=== PATIENT | male | born 1955 | race Caucasian/White ===

== ENCOUNTER 2018-01-28 11:22 | Observation (INO) ==
[2018-01-28] MEDS ORDERED: GI Cocktail 40 ML EACH PO ONE (11:32)
[2018-01-28] MEDS ORDERED: Aspirin 81 MG TAB.CHEW PO ONE (11:32)
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
[2018-01-28 12:21] LABS: Basophils % 0.2 %; Eosinophils # 0.1 K/mcL (0.0-0.6); Eosinophils % 2.1 %; Hematocrit 39.7 % (37.5-50.1); Hemoglobin 12.8 g/dL (12.9-16.9); Immature Granulocytes % 0.9 % (0-4); Lymphocytes # 0.6 K/mcL (0.6-4.6); Mean Corpuscular HGB Conc 32.2 g/dL (31.6-35.5); Mean Corpuscular Hemoglobin 26.1 pg (28.0-33.3); Mean Platelet Volume 10.1 fL (9.4-12.4); Monocytes # 0.3 K/mcL (0.0-1.3); Monocytes % 5.9 %; Neutrophils # 3.4 K/mcL (1.6-8.9); Platelet Count 123 K/mcL (140-400); Red Cell Distribution Width 14.5 % (11.5-14.5); Segmented Neutrophils % 76.9 %
[2018-01-28 12:29] LABS: Activated Partial Thrombo Time 30.5 Seconds (26.0-36.0)
[2018-01-28 12:40] LABS: BUN/Creatinine Ratio 13 (6-26); Blood Urea Nitrogen 18 mg/dL (8-23); Carbon Dioxide 28 mEq/L (23-29); Chloride 105 mEq/L (98-107); Glucose 203 mg/dL (70-105); INR 1.1; Osmolality,Calculated 290 (280-300); Potassium 4.1 mEq/L (3.5-5.1); Prothrombin Time 11.9 Seconds (9.4-12.1); Sodium 136 mEq/L (136-145); eGFR For Non-African Americans 52 (> 60)
[2018-01-28 12:41] LABS: Troponin I < 0.03 ng/mL (< 0.04)
[2018-01-28] MEDS: Isovue-370 500 ML INFUS..BTL IV ONE ×2 (12:59→13:07)
[2018-01-28 16:25] LABS: Prolactin 5.84 ng/mL (3.00-14.70)
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
[2018-01-28] MEDS: Gabapentin 300 MG CAPSULE PO SCH (22:37)
[2018-01-29 00:58] LABS: BUN/Creatinine Ratio 12 (6-26); Blood Urea Nitrogen 17 mg/dL (8-23); Calcium 9.3 mg/dL (8.6-10.3); Carbon Dioxide 28 mEq/L (23-29); Chloride 103 mEq/L (98-107); Chol/HDL Ratio 3.9 (0-4.9); Cholesterol 131 mg/dL (< 200); Glucose 201 mg/dL (70-105); HDL Cholesterol 34 mg/dL (40-59); LDL Cholesterol,Calculated 44 mg/dL (0-99); Osmolality,Calculated 289 (280-300); Potassium 4.1 mEq/L (3.5-5.1); Sodium 136 mEq/L (136-145); Triglycerides 266 mg/dL (< 150); eGFR For Non-African Americans 51 (> 60)
[2018-01-29] MEDS ORDERED: *HR* HYDROcodone/Acet 5/325 mg TABLET PO PRN (02:03)
[2018-01-29] MEDS ORDERED: Regadenoson 0.4 MG/5 ML SYRINGE IVP ONE (05:45)
[2018-01-29] MEDS ORDERED: Aspirin Enteric Coated 81 MG Tablet PO SCH (09:00)
[2018-01-29] MEDS: Gabapentin 300 MG CAPSULE PO SCH (09:47)
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
[2018-01-29 12:10] VITALS: BP 134/91
[2018-01-29 13:13] LABS: Estimated Average Glucose 140 mg/dl; Hemoglobin A1C 6.5 %
--- NOTE | 2018-01-29 15:05 | EEG/EMG/Oth Biometrics Report ---
EEG Procedure Report EEG Procedure: Routine EEG Procedure Note: This is a routine 21 channel digital EEG performed utilizing 10- 20 international electrode placement system. FINDINGS: Patient has a predominant waking background frequency that is average voltage 8 to 10 Hertz alpha activity in the posterior region, low amplitude symmetrical over the both hemispheres reactive to eyes opening and closing record continued to show alpha activity intermixed with some theta off and on, no abnormal activity recorded, predominantly no evidence of any spike wave discharges or any lateralizing abnormalities, Photic stimulation and hyperventilation did not produce any convulsive response. Intermittent EMG artifacts were noted. Stage II sleep was not achieved. Impression: Normal awake drowsy low amplitude electroencephalogram. No epileptiform discharges or any other paroxysmal activities noted. ( Please note that normal EEG does not exclude the diagnosis of seizures or epilepsy, clinical correlation is suggested)
--- NOTE | 2018-01-29 16:04 | Discharge Summary ---
- NOTES TO OUTPATIENT PROVIDER Notes to Outpatient Provider: Pt had syncopal episode after taking SL nitro for severe chest pain from achalasia. EEG, echo and stress negative. Orders not resulted at time of discharge: Pending orders 01/28/18 17:32 NM evelina perf SPECT multi [NM] Routine Date of Encounter: 01/29/18 Time of Encounter: 16:00 - Discharge Diagnosis (1) Hypotension Priority: Primary Status: Acute Qualifiers: Hypotension type: other hypotension type Qualified Code(s): I95.89 - Other hypotension (2) Syncope Priority: Secondary Status: Acute Assessment and Plan: Most likely related to hypotension from SL nitro and pain from achalasia Qualifiers: Syncope type: vasovagal syncope Qualified Code(s): R55 - Syncope and collapse (3) Achalasia Priority: Secondary Status: Chronic (4) Chest pain Priority: Secondary Status: Resolved Qualifiers: Chest pain type: other chest pain Qualified Code(s): R07.89 - Other chest pain; R07.8 - Other chest pain (5) Witnessed seizure-like activity Priority: Secondary Status: Resolved (6) Hypertension Priority: Secondary Status: Chronic Qualifiers: Hypertension type: essential hypertension Qualified Code(s): I10 - Essential (primary) hypertension (7) Diabetes Priority: Secondary Status: Chronic Qualifiers: Diabetes mellitus type: type 2 Diabetes mellitus complication status: without complication Hospital course: Mr. Campuzano is a 62 year old male with hx of achalasia was travelling from [place] to [place] yesterday when he developed severe chest pain (worse than usual ) related to achalasia. He took sublingual nitro and became unresponsive. He had seizure like activity and CPR was performed. He awoke without postictal state. He was placed in observation. Mr Campuzano was placed in observation for syncope and hypotension. He was seen by neuro and EEG was negative. Stress test and echo negative as well. He feels at baseline and is ready for discharge home. 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 Discharge discussed with: patient, family - Time Spent with Patient Total time spent providing and/or coordinating discharge services: - Discharge Medications Home Medications: DULoxetine [Cymbalta] 60 mg PO HS 01/28/18 [History] Dextroamphetamine/Amphetamine [Adderall 20 mg Tablet] 20 mg PO DAILY 01/28/18 [ History] Diltiazem HCl [Cardizem] 60 mg PO DAILY PRN 01/28/18 [History] Diltiazem [Cardizem] 30 mg PO DAILY PRN 01/28/18 [History] DiphenhydraMINE [Benadryl] 25 mg PO HS PRN 01/28/18 [History] Gabapentin [Neurontin] 300 mg PO BID 01/28/18 [History] Imipramine HCl [Tofranil] 100 mg PO HS 01/28/18 [History] Omeprazole [PriLOSEC] 40 mg PO BID 01/28/18 [History] Pain Relieving Rub Cream 2 appl TD QID 01/28/18 [History] Pravastatin Sodium [Pravachol] 20 mg PO HS 01/28/18 [History] Quetiapine Fumarate [Seroquel] 150 mg PO HS 01/28/18 [History] Tamsulosin [Flomax] 0.4 mg PO DAILY 01/28/18 [History] Tramadol HCl [Ultram] 50 mg PO DAILY PRN 01/28/18 [History] metFORMIN [Glucophage] 500 mg PO DAILY 01/28/18 [History] Aspirin Enteric Coated [Aspirin EC] 81 mg PO DAILY tablet. 01/29/18 [Rx] Allergies/Adverse Reactions: 3 Allergy/AdvReac Type Severity Reaction Status Date / Time clarithromycin [From Biaxin] AdvReac Vomiting Verified 01/28/18 11:32 Date of admission: 01/28/18 15:01 Primary care physician: PCP NONE Consults: 01/28/18 17:31 Consult to Neurology [CONS] Routine Consulting Provider: Neurology [facility] Reason for Consult: Witnessed new onset seizure-like activity, corpus callosum lipoma, new diagnosis Call Completed: No Discharging clinician: Epi Durant Anticipated date of discharge: 01/29/18 - Constitutional Vitals: Temp Pulse Resp BP Pulse Ox 98.3 F 81 17 134/91 95 01/29/18 12:09 01/29/18 12:01/29/18 12:01/29/18 12:01/29/18 12:09 General appearance: Present: A&O X 3, pleasant Exam: See below - Head Head exam: Present: normocephalic - Eye Eye exam: Present: EOMI, conjuntiva pink - ENT ENT exam: Present: mucous membranes moist - Respiratory Respiratory exam: Present: CTAB. Absent: rales, rhonchi, wheezes - Cardiovascular Cardiovascular exam: Present: RRR. Absent: systolic murmur, tachycardia - GI/Abdominal GI/Abdominal exam: Present: soft. Absent: tenderness - Extremities Exam Extremities exam: Present: warm. Absent: tenderness - Neurological Exam Neurological exam: Present: alert, oriented X3, no focal deficits - Skin Skin exam: Present: dry, warm - Patient Status Disposition: Home, Self-Care Condition: Good Functional capacity at discharge: independent ambulation Overall status at discharge: patient is progressing back to baseline - Discharge Instructions Instructions: Chest Pain (DC), Syncope (DC) Follow Up With: NONE,PCP [Primary Care Provider] - (Please follow up with PCP in 5-7 days.) - Diet and Activity Activity: increase activity as tolerated Diet: advance to your usual diet
--- NOTE | 2018-01-30 08:50 | Electrocardiograph Report ---
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
--- NOTE | 2018-02-01 18:14 | Electrocardiograph Report ---
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
== END 2018-01-29 17:22 | disposition home or self-care (01) ==
LOC: EMEROOARM 11:22 → 3BNU 11:22 → SUATTDRO 15:01 → 3BNU 16:40
PROVIDERS: ADMIT Internal Medicine; ATTEND Internal Medicine